=== PATIENT | female | born 1975 ===

== ENCOUNTER 2019-09-05 07:45 | Inpatient (IN) | payer OTHER ==
[~2019-09-05] VITALS: Ht 167.6 cm; Wt 106.6 kg
[2019-09-05] MEDS ORDERED: ZANTAC300 MG PO (08:26)
[2019-09-05] MEDS ORDERED: METFOR PO (08:26)
[2019-09-05] MEDS ORDERED: PROTONIX40 MG PO (08:27)
[2019-09-05] MEDS ORDERED: IRON PO (08:27)
[2019-09-11] MEDS ORDERED: IRON236 MG PO (08:07)
[2019-09-11] MEDS ORDERED: METFORMIN HCL850 MG PO (08:08)
== END 2019-09-12 09:08 | disposition home or self-care (01) | DRG 743 ==
LOC: O/R 07:45 → SURH 09-11 07:00 → OB/GYN 09-11 12:00
PROVIDERS: ADMIT Obstetrics & Gynecology Gynecologic Oncology
PROC: 0UT7FZZ Resection of Bilateral Fallopian Tubes, Via Natural or Artificial Opening With Percutaneous Endoscopic Assistance (ICD-10-PCS; 2019-09-11)
PROC: 0UT9FZZ Resection of Uterus, Via Natural or Artificial Opening With Percutaneous Endoscopic Assistance (ICD-10-PCS; principal; 2019-09-11 07:00)
DX: D25.1 Intramural leiomyoma of uterus (principal); N93.8 Other specified abnormal uterine and vaginal bleeding; N83.8 Other noninflammatory disorders of ovary, fallopian tube and broad ligament